=== PATIENT | male | born 1980 | race African-American/Black ===

== ENCOUNTER 2021-03-24 11:23 | Emergency (ER) | payer OTHER ==
[~2021-03-24] VITALS: Ht 165.1 cm; Wt 89.0 kg
[2021-03-24] MEDS ORDERED: KETOROLAC 60MG/2ML VIAL IM STA (13:07)
[2021-03-24] MEDS ORDERED: MAGNESIUM/ALUMINUM HYDROXIDE/SIMETHICONE 30ML UDC PO NR (13:30)
[2021-03-24] MEDS ORDERED: ONDANSETRON 4MG ODT PO NR (13:30)
[2021-03-24 14:35] LABS: BASOPHILS % 0.2 % (0.0-2.0); EOSINOPHILS % 0.1 % (0.0-5.0); HEMOGLOBIN. 15.4 g/dL (14.0-18.0); MEAN CORPUSCULAR HEMOGLOBIN 29.3 pg (28.0-32.0); MEAN CORPUSCULAR VOLUME 87.7 fL (80.0-94.0); MEAN PLATELET VOLUME 8.1 fl (7.4-10.4); MONOCYTES % 8.7 % (2.0-8.0); PLATELET 309 x1000/uL (130-400); RED BLOOD CELL COUNT 5.25 mill/uL (4.7-6.1); RED CELL DISTRIBUTION WIDTH 14.2 % (11.6-14.6)
[2021-03-24 14:41] LABS: CHLORIDE 102 mEq/L (98-107)
[2021-03-24] MEDS ORDERED: SODIUM CHLORIDE 0.9% 1,000 ML IV ONE (15:00)
[2021-03-24] MEDS ORDERED: ACETAMINOPHEN 325MG TABLET PO ONE (15:15)
[2021-03-24] MEDS ORDERED: ONDA4TAB5 MT (15:44)
[2021-03-24 16:25] VITALS: BP 124/68
== END 2021-03-24 16:26 | disposition home or self-care (01) ==
LOC: ER 11:23
DX: R10.11 Right upper quadrant pain (principal); Z87.828 Personal history of other (healed) physical injury and trauma
CPT/HCPCS: 36415; 76705; 80053; 83690; 85025; 99284; J7030; Q0162